=== PATIENT | female | born 1960 | race Caucasian/White ===

== ENCOUNTER 2018-07-15 11:45 | Inpatient (IN) | payer OTHER ==
[2018-07-15 11:46] VITALS: BMI 25.0
[2018-07-15 12:01] LABS: BASO % 0.7 % (0.0-2.0); HEMOGLOBIN 12.7 g/dL (11.0-16.0); LYMPH # 1.4 K/uL (1.0-4.3); LYMPH % 31.8 % (20.0-40.0); MEAN CELL VOLUME 85.3 fL (81.0-99.0); MEAN CORPUSCULAR HEMOGLOBIN 28.7 pg (27.0-31.0); MEAN CORPUSCULAR HGB CONC 33.7 g/dL (33.0-37.0); MEAN PLATELET VOLUME 10.3 fL (7.2-11.7); MONO # 0.5 K/uL (0.0-0.8); NEUT # 2.4 K/uL (1.8-7.0); NEUT % 55.5 % (50.0-75.0); RBC 4.43 Mil/uL (3.80-5.20); RED CELL DISTRIBUTION WIDTH 13.6 % (11.5-14.5); WHITE BLOOD COUNT 4.3 K/uL (4.8-10.8)
--- NOTE | 2018-07-15 12:11 | C.PDOC ---
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 Patient was last seen at baseline status at around 1900 yesterday. Patient denies chest pain and shortness of breath. Chief Complaint (Nursing): Weakness/Neurological Deficit History Per: Patient History/Exam Limitations: no limitations Onset/Duration Of Symptoms: Hrs Current Symptoms Are (Timing): Still Present Past Medical History Reviewed: Historical Data, Nursing Documentation, Vital Signs Vital Signs: Last Vital Signs Temp Pulse 79 07/15/18 11:50 Resp 18 07/15/18 11:50 BP 161/88 H 07/15/18 11:50 Pulse Ox 100 07/15/18 11:50 - Medical History PMH: Anxiety, HTN, Hypercholesterolemia Denies: HIV Surgical History: No Surg Hx - [facility] Procedures OCCUPATIONAL THERAPY (01/15/15) PHYSICAL THERAPY NEC (01/15/15) RECREATIONAL THERAPY (01/15/15) Family History: States: Unknown Family Hx - Social History Hx Alcohol Use: No Hx Substance Use: No Review Of Systems Cardiovascular: Negative for: Chest Pain Respiratory: Negative for: Shortness of Breath Neurological: Positive for: Weakness (facial ), Headache Physical Exam - Physical Exam Appears: Non-toxic, No Acute Distress Skin: Normal Color, Warm, Dry Head: Atraumatic, Normacephalic Eye(s): bilateral: Normal Inspection Oral Mucosa: Moist Neck: Supple Chest: Symmetrical, No Deformity, No Tenderness Cardiovascular: Rhythm Regular, No Murmur Respiratory: Normal Breath Sounds, No Rales, No Rhonchi, No Wheezing Extremity: Normal ROM, Capillary Refill (less than 2 seconds ), No Other (pitting edema ) Neurological/Psych: Other (no pronator drift to bilateral upper and lower extremities. patient is able to answer questions. her speech is mostly clear, but some slurring noted ) ED Course And Treatment - Laboratory Results Result Diagrams: 07/15/18 11:55 07/15/18 11:55 O2 Sat by Pulse Oximetry: 100 (on RA) Pulse Ox Interpretation: Normal - CT Scan/US CT Head Other Rad Studies (CT/US): Read By Radiologist, Radiology Report Reviewed CT/US Interpretation: Date of service: 07/15/2018. PROCEDURE: CT HEAD WITHOUT CONTRAST. HISTORY: Code Stroke. COMPARISON: None available. TECHNIQUE: Axial computed tomography images were obtained through the head/brain without intravenous contrast. Radiation dose: Total exam DLP = 896.35 mGy-cm. This CT exam was performed using one or more of the following dose reduction techniques: Automated exposure control, adjustment of the mA and/or kV according to patient size, and/or use of iterative reconstruction technique. FINDINGS: HEMORRHAGE: No intracranial hemorrhage. BRAIN: There is an old lacunar infarction in the right caudate head and left inferior jeannine, an old infarction in the right frontal periventricular white matter with volume loss and ex vacuo dilatation of the right frontal horn. There are mild chronic microangiopathic changes. There is no mass, mass effect or abnormal extra-axial fluid collection. There is no territorial infarction. The midline sagittal structures are normal. VENTRICLES: There is mild age-related global parenchymal volume loss and proportionate enlargement of the ventricles and cortical sulci. CALVARIUM: The skull base and calvarium are normal. PARANASAL SINUSES: Predominantly clear. MASTOID AIR CELLS: Predominantly clear. OTHER FINDINGS: None. IMPRESSION: No acute intracranial abnormality. If there is a persistent focal neurologic deficit and an ongoing clinical concern for acute infarction, an MRI of the brain without intravenous contrast would be a more sensitive modality for evaluation of hyperacute/acute ischemic infarction. Old lacunar infarctions in the right caudate head and left inferior jeannine, and old infarction in the right periventricular white matter. Mild chronic microangiopathic changes and mild age-related global parenchymal volume loss. Important findings were discussed with the ER physician Dong White on 07/15/2018 at. 12:05 p.m. NIHSS Stroke Scale 2 - Date/Time Evaluation Performed Date Performed: 07/15/18 Time Performed: 12:00 When Was NIHSS Performed: Baseline - How Severe is the Stroke Level of Consciousness: 0=Alert LOC to Questions: 0=Both comments correct LOC to commands: 0=Obeys both correctly Best Gaze: 0=Normal Visual: 0=No visual loss Facial: 1=Minor asymmetry Motor Arm - Left: 0=No drift Motor Arm - Right: 4=No movement (old stroke) Motor Leg - Left: 0=No drift Motor Leg - Right: 0=No drift Limb Ataxia: 0=Absent Best Language: 0=No aphasia Extinction & Inattention (Neglect): 0=Normal, no object rTPA Inclusion/Exclusion - Refusal of Treatment Patient Refused Treatment: No - Inclusion Criteria for Altepase Patient is 18 years or Older: Yes The Clinical Diagnosis of Ischemic Stroke That is Causing a Potentially Disabling Neurological Deficit: Yes Time of Onset is Well Established to be Less Than 270 Minute Before Treatment Would Begin: No Risk/Benefit Discussed With Patient/Family Member Present: No - Exclusion Criteria for Altepase Uncontrolled Hypertension at Time of Treatment (Systolic BP above 185 or Diastolic BP above 110 mmHg): No Active Internal Bleeding: No Known Bleeding Diathesis Including but Not Limited to: Platelets Below 100,000/mm,PTT Above 40 sec After Heparin Use, Current Use of Oral Anitcoagulant With INR Greater Than 1.7 or PT Greater Than 15 secs: No Evidence of an Intracranial Hemorrhage: No Evidence of Major Acute Infarct With Signs Greater Than 1/3 MCA Territory: No Suspicion of Subarachnoid Hemorrhage on Pretreatment Evaluation Even if CT Head Negative For Hemorrhage: No - Warning to TPA With Conditions Following Conditions Weighed Against Anticipated Benefit: No Condition: Care Team Unable to Determine Eligibilty (last seen at base line yesterday at 7pm) Medical Decision Making Medical Decision Making: Assessment: CVA vs. TIA Plan: * bloodwork * CXR * EKG * CT Head * reassess and disposition Progress: Bloodwork, CXR, EKG, CT Head ordered and reviewed. Case discussed with Dr. Rosario (Neurologist assistant branch operations manager), agrees on order of CT Head and will evaluate the patient Disposition - Disposition Disposition: HOSPITALIZED Disposition Time: 13:16 Condition: FAIR - POA Core Measure Indicators: Code Stroke - Clinical Impression Clinical Impression: CVA (cerebral vascular accident) - Scribe Statement The provider has reviewed the documentation as recorded by the Scribe (Nu Castillo) Provider Attestation: All medical record entries made by the Scribe were at my direction and personally dictated by me. I have reviewed the chart and agree that the record accurately reflects my personal performance of the history, physical exam, medical decision making, and the department course for this patient. I have also personally directed, reviewed, and agree with the discharge instructions and disposition.
[2018-07-15 12:12] LABS: INR 1.1; PROTHROMBIN TIME 12.4 SECONDS (9.7-12.2)
[2018-07-15 12:14] LABS: BLOOD UREA NITROGEN 14 mg/dL (7-17); CALCIUM 9.7 mg/dl (8.6-10.4); GFR NON-AFRICAN AMERICAN > 60; HDL CHOLESTEROL 49 mg/dL (30-70)
--- NOTE | 2018-07-15 12:14 | CT ---
Date of service: 07/15/2018 PROCEDURE: CT HEAD WITHOUT CONTRAST. HISTORY: Code Stroke COMPARISON: None available. TECHNIQUE: Axial computed tomography images were obtained through the head/brain without intravenous contrast. Radiation dose: Total exam DLP = 896.35 mGy-cm. This CT exam was performed using one or more of the following dose reduction techniques: Automated exposure control, adjustment of the mA and/or kV according to patient size, and/or use of iterative reconstruction technique. FINDINGS: HEMORRHAGE: No intracranial hemorrhage. BRAIN: There is an old lacunar infarction in the right caudate head and left inferior jeannine, an old infarction in the right frontal periventricular white matter with volume loss and ex vacuo dilatation of the right frontal horn. There are mild chronic microangiopathic changes. There is no mass, mass effect or abnormal extra-axial fluid collection. There is no territorial infarction. The midline sagittal structures are normal. VENTRICLES: There is mild age-related global parenchymal volume loss and proportionate enlargement of the ventricles and cortical sulci. CALVARIUM: The skull base and calvarium are normal. PARANASAL SINUSES: Predominantly clear. MASTOID AIR CELLS: Predominantly clear. OTHER FINDINGS: None. IMPRESSION: No acute intracranial abnormality. If there is a persistent focal neurologic deficit and an ongoing clinical concern for acute infarction, an MRI of the brain without intravenous contrast would be a more sensitive modality for evaluation of hyperacute/acute ischemic infarction. Old lacunar infarctions in the right caudate head and left inferior jeannine, and old infarction in the right periventricular white matter. Mild chronic microangiopathic changes and mild age-related global parenchymal volume loss. Important findings were discussed with the ER physician Dong White on 07/15/2018 at 12:05 p.m.
[2018-07-15 12:16] LABS: ALB/GLOB RATIO 1.3 (1.0-2.1); ALBUMIN 4.5 g/dL (3.5-5.0); ALT/SGPT 13 U/L (9-52); AST/SGOT 31 U/L (14-36)
[2018-07-15 12:26] LABS: LDL CHOLESTEROL 127 mg/dL (0-129)
--- NOTE | 2018-07-15 13:07 | RAD ---
Date of service: 07/15/2018 HISTORY: Code Stroke COMPARISON: No prior. FINDINGS: LUNGS: The lungs are well inflated and clear. PLEURA: No significant pleural effusion identified, no pneumothorax apparent. CARDIOVASCULAR: Normal. OSSEOUS STRUCTURES: No significant abnormalities. VISUALIZED UPPER ABDOMEN: Normal. OTHER FINDINGS: None. IMPRESSION: No active pulmonary disease.
--- NOTE | 2018-07-15 18:16 | CP.PCM.HP ---
History of Present Illness - History of Present Illness History of Present Illness: apt has dificulty talking today and felt weekness Present on Admission - Present on Admission Any Indicators Present on Admission: No Review of Systems - Review of Systems Systems not reviewed;Unavailable: Acuity of Condition - Constitutional Constitutional: Headache - EENT Eyes: Photophobia Ears: As Per HPI Nose/Mouth/Throat: As Per HPI - Breasts Breasts: As Per HPI - Cardiovascular Cardiovascular: As Per HPI - Respiratory Respiratory: As Per HPI - Gastrointestinal Gastrointestinal: As Per HPI - Genitourinary Genitourinary: As Per HPI - Menstruation Menstruation: Post Menopausal - Musculoskeletal Additional comments: paralysis ru ext - Integumentary Integumentary: As Per HPI - Neurological Additional comments: dysarthia paralysis ruext old - Psychiatric Psychiatric: As Per HPI - Endocrine Endocrine: Cold Intolorance, Polyuria - Hematologic/Lymphatic Hematologic: As Per HPI Past Patient History - Past Medical History & Family History Past Medical History?: Yes - Past Social History Smoking Status: Never Smoked - CARDIAC Hx Hypercholesterolemia: Yes Hx Hypertension: Yes - PULMONARY Hx Respiratory Disorders: No - NEUROLOGICAL HX Cerebrovascular Accident: Yes (residual right side weakness and slurred speech) - HEENT Hx HEENT Problems: Yes Hx Cataracts: Yes Hx Glaucoma: Yes - ENDOCRINE/METABOLIC Hx Diabetes Mellitus Type 2: Yes - HEMATOLOGICAL/ONCOLOGICAL Hx Human Immunodeficiency Virus (HIV): No - MUSCULOSKELETAL/RHEUMATOLOGICAL Hx Falls: No - PSYCHIATRIC Hx Anxiety: Yes Hx Substance Use: No - SURGICAL HISTORY Hx Surgeries: Yes Hx Cataract Extraction: Yes - ANESTHESIA Hx Anesthesia: Yes Hx Anesthesia Reactions: No Meds Allergies/Adverse Reactions: Allergies Allergy/AdvReac Type Severity Reaction Status Date / Time No Known Allergies Allergy Verified 07/15/18 11:56 Physical Exam - Constitutional Appears: Non-toxic, In Acute Distress - Head Exam Head Exam: NORMAL INSPECTION - Eye Exam Eye Exam: Normal appearance - ENT Exam ENT Exam: Mucous Membranes Moist - Neck Exam Neck exam: Positive for: Normal Inspection - Respiratory Exam Respiratory Exam: Clear to Auscultation Bilateral - Cardiovascular Exam Cardiovascular Exam: REGULAR RHYTHM - GI/Abdominal Exam GI & Abdominal Exam: Soft - Exam Exam: NORMAL INSPECTION - Extremities Exam Additional comments: ruext paralysis - Back Exam Back exam: NORMAL INSPECTION - Neurological Exam Neurological exam: Alert - Psychiatric Exam Psychiatric exam: Normal Mood - Skin Skin Exam: Normal Color Results - Vital Signs Recent Vital Signs: Last Vital Signs Temp Pulse 74 07/15/18 17:10 Resp 16 07/15/18 17:10 BP 120/73 07/15/18 17:10 Pulse Ox 100 07/15/18 17:10 - Labs Result Diagrams: 07/15/18 11:55 07/15/18 11:55 Labs: Laboratory Results - last 24 hr 07/15/18 07/15/18 07/15/18 11:49 11:55 11:55 WBC 4.3 L RBC 4.43 Hgb 12.7 Hct 37.8 MCV 85.3 MCH 28.7 MCHC 33.7 RDW 13.6 Plt Count 167 MPV 10.3 Neut % (Auto) 55.5 Lymph % (Auto) 31.8 Bowie % (Auto) 11.0 H Eos % (Auto) 1.0 Baso % (Auto) 0.7 Neut # (Auto) 2.4 Lymph # (Auto) 1.4 Bowie # (Auto) 0.5 Eos # (Auto) 0.0 Baso # (Auto) 0.0 PT 12.4 H INR 1.1 APTT 41 H Sodium Potassium Chloride Carbon Dioxide Anion Gap BUN Creatinine Est GFR ( Amer) Est GFR (Non-Af Amer) POC Glucose (mg/dL) 165 H Random Glucose Hemoglobin A1c Calcium Total Bilirubin AST ALT Alkaline Phosphatase Troponin I Total Protein Albumin Globulin Albumin/Globulin Ratio Triglycerides Cholesterol LDL Cholesterol Direct HDL Cholesterol Blood Type Antibody Screen 07/15/18 07/15/18 07/15/18 11:55 11:55 11:55 WBC RBC Hgb Hct MCV MCH MCHC RDW Plt Count MPV Neut % (Auto) Lymph % (Auto) Bowie % (Auto) Eos % (Auto) Baso % (Auto) Neut # (Auto) Lymph # (Auto) Bowie # (Auto) Eos # (Auto) Baso # (Auto) PT INR APTT Sodium 137 Potassium 5.3 H Chloride 99 Carbon Dioxide 26 Anion Gap 18 BUN 14 Creatinine 0.8 Est GFR ( Amer) > 60 Est GFR (Non-Af Amer) > 60 POC Glucose (mg/dL) Random Glucose 168 H Hemoglobin A1c 7.9 H D Calcium 9.7 Total Bilirubin 0.7 AST 31 ALT 13 Alkaline Phosphatase 58 Troponin I < 0.0120 Total Protein 8.0 Albumin 4.5 Globulin 3.5 Albumin/Globulin Ratio 1.3 Triglycerides 173 H Cholesterol 215 H LDL Cholesterol Direct 127 HDL Cholesterol 49 Blood Type O POSITIVE Antibody Screen Negative Assessment & Plan - Assessment and Plan (Free Text) Assessment: ac dysarthia and weekness possible ac cva old cva dm Plan: as per orders - Date & Time Date: 07/15/18 Time: 18:20
[2018-07-15 22:14] VITALS: RESP 20
[2018-07-15] MEDS: (Novolin R) Insulin Human Regular 100 units/ml vial SC SCH (22:15)
[2018-07-16] MEDS: (Novolin R) Insulin Human Regular 100 units/ml vial SC SCH ×2 (08:16→11:57)
[2018-07-16 09:34] VITALS: BP 104/68; TEMP 98.7; O2SAT 96
--- NOTE | 2018-07-16 11:08 | CP.PCM.PN ---
Subjective - Date & Time of Evaluation Date of Evaluation: 07/16/18 Time of Evaluation: 11:05 - Subjective Subjective: pt feels beter no new numness or weekness ct old infarctionhad pt today can walk with assistance was on pt befor admission Objective - Vital Signs/Intake and Output Vital Signs (last 24 hours): Temp Pulse Resp BP Pulse Ox 98.7 F 69 20 104/68 96 07/16/18 08:00 07/16/18 08:00 07/16/18 08:00 07/16/18 08:00 07/16/18 08:00 - Medications Medications: Current Medications Aspirin (Ecotrin) 81 mg PO DAILY [facility] Last Admin: 07/16/18 10:22 Dose: 81 mg Heparin Sodium (Porcine) (Heparin) 5,000 units SC Q12 [facility] Last Admin: 07/16/18 10:22 Dose: 5,000 units Insulin Human Regular (Novolin R) 0 unit SC ACHS [facility]; Protocol Last Admin: 07/16/18 08:16 Dose: 2 units Pneumococcal Polyvalent Vaccine (Pneumovax 23 Vaccine) 0.5 ml IM .ONCE ONE Stop: 07/17/18 10:01 Rosuvastatin Calcium (Crestor) 20 mg PO HS [facility] Last Admin: 07/15/18 22:15 Dose: 20 mg Sertraline HCl (Zoloft) 50 mg PO DAILY [facility] Last Admin: 07/16/18 10:22 Dose: 50 mg - Labs Labs: 07/15/18 11:55 07/15/18 11:55 PT 12.4 SECONDS (9.7-12.2) H 07/15/18 11:55 INR 1.1 07/15/18 11:55 APTT 41 SECONDS (21-34) H 07/15/18 11:55 - Constitutional Appears: Non-toxic - Head Exam Head Exam: NORMAL INSPECTION - Eye Exam Eye Exam: Normal appearance Pupil Exam: NORMAL ACCOMODATION - ENT Exam ENT Exam: Mucous Membranes Moist - Neck Exam Neck Exam: Full ROM - Respiratory Exam Respiratory Exam: Clear to Ausculation Bilateral - Cardiovascular Exam Cardiovascular Exam: REGULAR RHYTHM - GI/Abdominal Exam GI & Abdominal Exam: Normal Bowel Sounds - Rectal Exam Rectal Exam: Deferred - Exam Exam: NORMAL INSPECTION - Extremities Exam Extremities Exam: Normal Capillary Refill - Back Exam Back Exam: NORMAL INSPECTION - Neurological Exam Neurological Exam: Alert, Oriented x3 - Psychiatric Exam Psychiatric exam: Normal Affect - Skin Skin Exam: Normal Color Assessment and Plan - Assessment and Plan (Free Text) Assessment: tia old cva with paresis rlext Plan: arrange for pt at home february d/c soon
[2018-07-16] MEDS ORDERED: Influenza Vaccine 60 MCG/0.5 ML SYR (3 yr & up) IM ONE (13:12)
[2018-07-16 13:14] VITALS: PULSE 70
[2018-07-16] MEDS ORDERED: Pneumococcal 23-Valent Vaccine IM ONE ×2 (13:15→13:30)
--- NOTE | 2018-07-16 14:02 | CP.PCM.CON ---
History of Present Illness - History of Present Illness History of Present Illness: PGY1 Neurology Consult Note for Dr. Rosario Patient is a 58 year old female referred to us by Dr. Her, who has a past medical history of DM2, HTN, hyperlipidemia, prior CVA (2014) with residual right sided weakness and dysarthria. Patient says she was feeling weaker and more lightheaded than usual in the last 2-3 days. Patient says that Physical Therapy helped her in the past, and she would like to get more Physical Therapy. Patient says that her symptoms were present since having her stroke back in 2014, and that she was able to regain some of her function back, but that she still had some residual weakness in upper extremity and dysarthria. Patient otherwise denies headache, dizziness, shortness of breath, chest pain, vision changes, difficulty chewing, nausea, vomiting, fever, and/or chills. Review of Systems - Review of Systems Review of Systems: - Constitutional Constitutional: Headache - EENT Eyes: Photophobia Ears: As Per HPI Nose/Mouth/Throat: As Per HPI - Breasts Breasts: As Per HPI - Cardiovascular Cardiovascular: As Per HPI - Respiratory Respiratory: As Per HPI - Musculoskeletal Additional comments: Right upper extremity paralysis - Integumentary Integumentary: As Per HPI - Neurological Additional comments: Dysarthia Right upper extremity paralysis (old) - Psychiatric Psychiatric: As Per HPI - Endocrine Endocrine: Cold Intolorance, Polyuria Past Patient History - Past Medical History & Family History Past Medical History?: Yes - Past Social History Smoking Status: Never Smoked - CARDIAC Hx Hypercholesterolemia: Yes Hx Hypertension: Yes - PULMONARY Hx Respiratory Disorders: No - NEUROLOGICAL HX Cerebrovascular Accident: Yes (residual right side weakness and slurred speech) - HEENT Hx HEENT Problems: Yes Hx Cataracts: Yes Hx Glaucoma: Yes - ENDOCRINE/METABOLIC Hx Diabetes Mellitus Type 2: Yes - HEMATOLOGICAL/ONCOLOGICAL Hx Human Immunodeficiency Virus (HIV): No - MUSCULOSKELETAL/RHEUMATOLOGICAL Hx Falls: No - PSYCHIATRIC Hx Substance Use: No - SURGICAL HISTORY Hx Surgeries: Yes Hx Cataract Extraction: Yes - ANESTHESIA Hx Anesthesia: Yes Hx Anesthesia Reactions: No Meds Allergies/Adverse Reactions: Allergies Allergy/AdvReac Type Severity Reaction Status Date / Time No Known Allergies Allergy Verified 07/15/18 11:56 - Medications Medications: Current Medications Aspirin (Ecotrin) 81 mg PO DAILY [facility] Last Admin: 07/16/18 10:22 Dose: 81 mg Heparin Sodium (Porcine) (Heparin) 5,000 units SC Q12 [facility] Last Admin: 07/16/18 10:22 Dose: 5,000 units Insulin Human Regular (Novolin R) 0 unit SC ACHS [facility]; Protocol Last Admin: 07/16/18 11:57 Dose: 2 units Rosuvastatin Calcium (Crestor) 20 mg PO HS [facility] Last Admin: 07/15/18 22:15 Dose: 20 mg Sertraline HCl (Zoloft) 50 mg PO DAILY [facility] Last Admin: 07/16/18 10:22 Dose: 50 mg Physical Exam - Constitutional Appears: Non-toxic, No Acute Distress - Head Exam Head Exam: ATRAUMATIC, NORMAL INSPECTION, NORMOCEPHALIC - Eye Exam Eye Exam: EOMI, Normal appearance, PERRL Pupil Exam: NORMAL ACCOMODATION - ENT Exam ENT Exam: Mucous Membranes Moist, Normal Exam - Neck Exam Neck exam: Positive for: Normal Inspection - Respiratory Exam Respiratory Exam: NORMAL BREATHING PATTERN Results - Vital Signs Recent Vital Signs: Last Vital Signs Temp 98.7 F 07/16/18 08:00 Pulse 70 07/16/18 08:00 Resp 20 07/16/18 08:00 BP 104/68 07/16/18 08:00 Pulse Ox 96 07/16/18 08:00 - Labs Result Diagrams: 07/15/18 11:55 07/15/18 11:55 Labs: Laboratory Results - last 24 hr 07/15/18 07/15/18 07/16/18 21:33 22:09 07:25 POC Glucose (mg/dL) 236 H 195 H 170 H 07/16/18 11:11 POC Glucose (mg/dL) 199 H
--- NOTE | 2018-07-16 15:41 | CARD ---
APPROVED REPORT Date of service: 07/15/2018 EKG Measurement Heart [id number] <Conclusion> Normal sinus rhythm Possible Left atrial enlargement Nonspecific T wave abnormality Abnormal ECG
--- NOTE | 2018-07-16 18:00 | CP.PCM.PN ---
Objective - Vital Signs/Intake and Output Vital Signs (last 24 hours): Temp Pulse Resp BP Pulse Ox 98.7 F 70 20 104/68 96 07/16/18 08:00 07/16/18 08:00 07/16/18 08:00 07/16/18 08:00 07/16/18 08:00 Intake and Output: 07/16/18 07/16/18 06:59 18:59 Intake Total 500 Balance 500 - Labs Labs: 07/15/18 11:55 07/15/18 11:55 PT 12.4 SECONDS (9.7-12.2) H 07/15/18 11:55 INR 1.1 07/15/18 11:55 APTT 41 SECONDS (21-34) H 07/15/18 11:55 Assessment and Plan - Assessment and Plan (Free Text) Assessment: Patient is seen and examined. Alert, oriented, able to swallow well. [place] discharge home with home PT today as per DR Her. Patient apparently sent home before the MRI done as per NEUR[facility]. called the MRI department and got appointment for MRI of the head without contrast for Thursday at 11am, prescription given to the daughter for MRA of the head and neck as ordered by DR Rosario. Will follow up after MRI.
== END 2018-07-16 15:50 | disposition home or self-care (01) | DRG 69 ==
LOC: C.ER 11:45 → C.9E 13:16 → C.3T 21:22
PROVIDERS: ADMIT Internal Medicine; ATTEND Internal Medicine
DX: G45.9 Transient cerebral ischemic attack, unspecified (principal); I69.251 Hemiplegia and hemiparesis following other nontraumatic intracranial hemorrhage affecting right dominant side; E78.5 Hyperlipidemia, unspecified; I10 Essential (primary) hypertension; E11.9 Type 2 diabetes mellitus without complications; H40.9 Unspecified glaucoma; E78.00 Pure hypercholesterolemia, unspecified